=== PATIENT | female | born 1985 | race Caucasian/White ===

== ENCOUNTER 2023-02-28 06:48 | Inpatient (IN) ==
--- NOTE | 2023-02-28 07:20 | DR.OB ---
OB QUICK NOTE Assessment/Plan (1) Active labor at term: Assessment/Plan: L&D 02/28/23 at 7:15am S-No complaint. O-Afebrile,VSS SFR=[id number] with good LTV, +accel, no decel. CTX=mild, irregular CVX=3cm/50%/-1/VTX AROM with clear fluid. IUPC and FSE placed. A-IUP at 39 0/7 weeks for induction +GBS AMA Incompetent CVX P-Begin pitocin induction IV ABX in labor for +GBS Anticipate
[2023-02-28] MEDS ORDERED: AMPICILLIN VIAL 2 GRAM ONE (07:27)
[2023-02-28] MEDS ORDERED: NS 100 ML IV 100 ML ONE ×2 (07:28→12:20)
[2023-02-28] MEDS ORDERED: D5 1/2 NS 1,000 ML 1,000 ML IV ONE (07:42)
[2023-02-28] MEDS ORDERED: ZOFRAN INJ 4 MG VIAL IVP PRN (08:06)
[2023-02-28] MEDS ORDERED: AMPICILLIN VIAL 2 GRAM 2 G in NS 100 ML IV 100 ML IV SCH (08:06)
[2023-02-28] MEDS ORDERED: VSL#3 PO SCH (08:06)
[2023-02-28] MEDS ORDERED: D5 1/2 NS 1,000 ML 1,000 ML IV SCH (08:06)
[2023-02-28] MEDS ORDERED: NUBAIN INJ 20 MG AMP IVP PRN (08:06)
[2023-02-28] MEDS ORDERED: PITOCIN IVP ONE (08:06)
[2023-02-28] MEDS ORDERED: AMPICILLIN VIAL 1 GRAM 1 G in NS 50 ML IV 50 ML IV SCH (08:06)
[2023-02-28] MEDS ORDERED: REGLAN INJ 10 MG VIAL IVP PRN (08:06)
[2023-02-28] MEDS ORDERED: STADOL INJ IVP PRN (08:06)
[2023-02-28] MEDS ORDERED: OXYTOCIN 20 UNIT/1,000 ML-NS 20 UNIT/1,000 ML PLAST..BAG IV PRN (08:06)
[2023-02-28] MEDS ORDERED: LR 1,000 ML IV 1,000 ML IV ONE ×2 (09:46→14:41)
[2023-02-28] MEDS ORDERED: FENTANYL VIAL INJ 100 mcg ONE (10:00)
[2023-02-28] MEDS ORDERED: NAROPIN EPIDURAL 0.2% 100 ML ONE (10:00)
[2023-02-28] MEDS ORDERED: BETADINE SOLN ONE (11:52)
[2023-02-28] MEDS ORDERED: AMPICILLIN VIAL 1 GRAM ONE (12:20)
--- NOTE | 2023-02-28 12:23 | DR.OB ---
OB QUICK NOTE Assessment/Plan (1) Active labor at term: Assessment/Plan: L&D 02/28/23 at 12:20pm Pitocin=10mu/min. S-No complaint. s/p epidural. O-Afebrile,VSS XFD=358 with good LTV, +accel, no decel. CTX=q 1 1/2 to 3 min., about 35-55mmHg CVX=5-6cm/80%/-1/VTX A-IUP at 39/0/7 weeks for induction +GBS AMA Incompetent CVX P-Cont. pitocin induction Cont. IV ABX in labor Anticipate
[2023-02-28] MEDS ORDERED: PITOCIN ONE (13:34)
[2023-02-28] MEDS ORDERED: MOTRIN TAB 800 MG PO PRN ×2 (15:29→16:51)
[2023-02-28] MEDS: OXYTOCIN 20 UNIT/1,000 ML-NS 20 UNIT/1,000 ML PLAST..BAG IV SCH ×2 (16:49→23:14)
[2023-02-28] MEDS ORDERED: ADACEL or BOOSTRIX TDaP VACCINE IM ONE (16:51)
[2023-02-28] MEDS ORDERED: AMBIEN PO PRN (16:51)
[2023-02-28] MEDS ORDERED: MILK OF MAGNESIA PO PRN (16:51)
[2023-02-28] MEDS ORDERED: DERMOPLAST PAIN RELIEF SPRAY TOP PRN (16:51)
--- NOTE | 2023-02-28 16:52 | DR.OB ---
OB QUICK NOTE Assessment/Plan (1) Active labor at term: Assessment/Plan: Delivery Note [employer] 02/28/23 at 15:18 Patient complete and pushing. Head delivered over intact perineum. Nuchal cord x 2 reduced. Nose and mouth bulb suctioned. Body delivered over intact perineum. Cord clamped x 2 and cut. handed to attendant. Cord sent for gases. Placenta delivered spontaneously / intact / 3 vessel cord. No CVX tears. A small midline second degree tear noted and repaired with 0-vicryl in usual fashion. Viable female infant delivered by , VTX/OA, wt=6'11" and 8/9, stable to NBN. Mother stable to RR. QDG=[id number].
[2023-02-28] MEDS ORDERED: FERROUS GLUCONATE PO SCH (17:00)
[2023-02-28] MEDS ORDERED: TYLENOL 325 MG TAB PO PRN (23:16)
[2023-03-01] MEDS: OXYTOCIN 20 UNIT/1,000 ML-NS 20 UNIT/1,000 ML PLAST..BAG IV SCH ×2 (02:35→08:36)
[2023-03-01 05:20] LABS: HEMATOCRIT 31.9 % (36.0-47.0); HEMOGLOBIN 10.6 g/dL (12.0-16.0)
[2023-03-01 08:16] VITALS: RESP 20
[2023-03-01] MEDS ORDERED: PRENATAL PLUS PO SCH (09:00)
[2023-03-01 11:49] VITALS: TEMP 98.3
[2023-03-01] MEDS ORDERED: BETADINE SOLN TOP ONE (16:22)
[2023-03-01 16:26] VITALS: BP 138/71; PULSE 70; O2SAT 97
[2023-03-01] MEDS ORDERED: BETADINE SOLN ONE (16:41)
== END 2023-03-01 18:10 | disposition home or self-care (01) | DRG 807 ==
LOC: LD 06:48 → MED/SURG 16:53
PROVIDERS: ADMIT Specialist; ATTEND Specialist